=== PATIENT | female | born 1945 ===

== ENCOUNTER 2024-02-05 09:20 | Outpatient (AMB) | payer OTHER, SELFPAY ==
--- NOTE | 2024-02-05 09:16 | MHC.PC.OV ---
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 Manager Audio Required: Yes Manager Audio Language: Mexican - Traditional Is last menstrual period known: No Post menopausal: No Patient : No Allergies Penicillins Allergy (Mild, Verified 02/05/24 09:41) Itching Medication List - Last Reconciled 02/05/24 by Lucie Urbina, [facility]- amlodipine 2.5 mg PO DAILY irbesartan 75 mg PO DAILY osimertinib 80 mg PO Q24H Tobacco use date assessed: 02/05/24 Fall risk assessment: No Falls in past year Last assessed Fall Risk: 02/05/24 Dental Screening Dental Screen Date: 02/05/24 Did you have a dental visit in the last 12 months?: Yes Did you have a dental problem in the last 6 months where you did not have access to dental care?: No Was dental information given to patient?: Patient has dentist HPI HPI Comments History of Present Illness Details 78 y/o Mexican speaking female with osteoporosis, DJD, hyperlipidemia, hypertension, cancer of right lung (2018 managed by [facility]) s/p Radiation, BPPV status post hysterectomy, cataract surgery Health Maintenance: ? Colon ? Mammo 07/20/2022 BI-RADS 1- ? DEXA 07/24/2022 osteoporosis ? PAP ? Tdap Specialists: Oncologist q 3 months @ [facility] and [facility] Here today to est care & for a CPE, previous PCP records reviewed. Son present to help w language barrier HTN well controlled on current meds. Needs refills Has occasional GERD and uses PPI sparingly, needs refill. Cancer of right lung, dx in 2018, active on oral chemo. Son reports q 3 months labs and PET scans with stable findings Declines health maintenance imaging and labs; gets this done in [place]. Will be returning there in March. C/o insomnia daily, vertigo from time to time but this is self limiting and infrequent. c/o chronic low back pain, worse after doing dishes; has not tried any medications to help. swelling when traveling of ble that is self limiting and not assoc w/ any other Sx. General: Well developed, well nourished, in no acute distress. Appears stated age. Head: Normocephalic, atraumatic. Eyes: Pupils are equal, round and reactive to light and accommodation. Conjunctivae are clear. Vision grossly normal. Ears: TMs clear AU, EACS WNL Nose: Patent, without discharge. Mouth: There are no ulcers or lesions noted. No inflammation, no post nasal drip, no plaques nor exudates. Neck: Supple, no adenopathy or thyromegaly. Lungs: Clear to auscultation bilaterally. No rales, rhonchi or wheeze noted. Good air flow in all corea. Heart: Regular rate and rhythm. No murmurs, click, rubs or gallops are noted. Abdomen: Bowel sounds present in all quadrants. The abdomen is soft, nontender, with no masses or organomegaly noted. No hernias are noted. Musculoskeletal: Joints are nontender, without swelling, redness, or effusions. Range of motion is observed to be normal. Pulses: Peripheral pulses are equal and palpable bilaterally. Extremities: No clubbing, cyanosis nor edema is noted. Neurologic: Gait and station normal. Cranial Nerves 2-12 intact. Motor strength grossly symmetrical and intact. No sensory loss. Balance normal. Skin: No rashes, ulcers, or lesions noted. Turgor is good. Skin color is good. Hair and nails are without abnormalities. Psych: Normal eye contact, affect and mood appropriate, and normal interactions. Patient is alert and appropriate to context. Plan: Cont HTN meds; refill PPI to use PRN, lidocaine for low back pain. Cont care and fu with Onco Declined all health maintenance imaging and labs RTO 1 year for CPE, sooner as needed. [facility] Medical History (Updated 02/05/24 @ 11:40 [facility] Vaginal smear following removal of uterus and uterine cervix Surgical History (Updated 02/05/24 @ 10:37 by Leanna Stuart) S/P removal of cervix Family History (Updated 02/05/24 @ 09:30 by Leanna Stuart) Sister FH: mental illness Mother FH: mental illness Social History Housing: Apartment Patient Tobacco Use Status: Never used Tobacco e-Cigarette/Vaping Use: Never Used Second Hand Smoke Exposure: No service: No Current occupational status: retired Current occupational exposures/hazards: No Cognitive needs: No Hearing needs: No Vision needs: No Questionnaire PHQ-9 Over the last 2 weeks, how often have you been bothered by any of the following problems? 1. Little interest or pleasure in doing things: several days 2. Feeling down, depressed, or hopeless: not at all 3. Trouble falling or staying asleep, or sleeping too much: nearly every day 4. Feeling tired or having little energy: more than half the days 5. Poor appetite or overeating: not at all 6. Feeling bad about yourself - or that you are a failure or have let yourself or your family down: not at all 7. Trouble concentrating on things, such as reading the newspaper or watching television: several days 8. Moving or speaking so slowly that other people could have noticed. Or the opposite - being so fidgety or restless that you have been moving around a lot more than usual: several days 9. Thoughts that you would be better off or of hurting yourself in some way: not at all Total score: 8 Depression Screening Interpretation: Negative Depression Screening Done: Yes 15525 - PHQ-9 Billing: Yes Source: Developed by Drs. Joon Price, Maitlda Dykes, Burton Ambriz and colleagues, with an educational thang from [employer]. Thrive Questionnaire Date Thrive assessed: 02/05/24 I am a: Patient What is your living situation today?: I do not have a steady places to live Within the past 12 months, did the food you bought not last and you didn't have the money to get more?: Never true Within the past 12 months, did you worry whether your food would run out before you got money to buy more?: Never true Do you have trouble paying for medicines?: No Do you have trouble getting transportation to medical appointments?: No Do you have trouble paying your heating and electricity bill?: No Do you have trouble taking care of your child, family member or friend?: No Do you have trouble with day-to-day activities such as bathing, preparing meals, shopping, managing finances, etc.?: No Are you currently unemployed and looking for a job?: No Are you interested in more education?: No Please select the resources that you would like help with: None Currently or been in a relationship where the following occur: No concerns reported THRIVE Score: 1 AUDIT C Alcohol Use Questionnaire (AUDIT-C) 1. How often do you have a drink containing alcohol?: 4 or more times a week 2. How many drinks containing alcohol do you have on a typical day when you are drinking?: 1 or 2 3. How often do you have six or more drinks on one occasion?: Never Total Score: 4 Score Reviewed/Action Taken: Yes AYAD-7 AMB Questionnaire AYAD-7 Date AYAD - 7 assessed: 02/05/24 Feeling nervous, anxious, or on edge: 1 = Several days Not being able to stop or control worryin = Several days Worrying too much about different things: 1 = Several days Trouble relaxin = Several days Being so restless that it is hard to sit still: 0 = Not at all Becoming easily annoyed or irritable: 0 = Not at all Feeling afraid as if something awful might happen: 0 = Not at all Total AYAD-7 score (0-4 normal; 5-9 mild; 10-14 moderate; 15-21 severe): 4 Source: Developed by Drs. Joon Price, Matilda Dykes, Burton Ambriz and colleagues, with an educational thang from [employer]. AYAD-7 Assessment Billing AYAD-7 Assessment Tool: AYAD-7 Assessment 85545 Physical exam (Primary Care) Vital Signs: Last Vital Signs Temp 97.3 F 02/05/24 09:20 Pulse 48 L 02/05/24 09:20 Resp 16 02/05/24 09:20 BP 124/80 02/05/24 09:20 Pulse Ox 98 02/05/24 09:20 Oxygen Delivery Method Room Air 02/05/24 09:20 BMI result Body Mass Index 22.9 Tobacco/Smoking Status: Tobacco use Status Tobacco use date assessed 02/05/24 02/05/24 09:31 Patient Tobacco Use Status Never used Tobacco 02/05/24 09:31 e-Cigarette/Vaping Use Never Used 02/05/24 09:31 PHQ-9: PHQ-9 Score PHQ-9: Total score 8 02/05/24 10:29 Depression Screening Interpretation: Negative Thrive Assessment: Date of Thrive Assessment Date Thrive assessed 02/05/24 02/05/24 09:51 Currently or been in a relationship where the following occur: No concerns reported Assessment and Plan Assessment & Plan (1) Encounter for general adult medical examination without abnormal findings: Code(s): Z00.00 - Encounter for general adult medical examination without abnormal findings (2) Osteoporosis: Code(s): M81.0 - Age-related osteoporosis without current pathological fracture Qualifiers: Osteoporosis type: age-related Presence of current pathological fracture: without current pathological fracture Qualified Code(s): M81.0 - Age-related osteoporosis without current pathological fracture (3) Degenerative joint disease (DJD) of lumbar spine: Code(s): M47.816 - Spondylosis without myelopathy or radiculopathy, lumbar region Qualifiers: Spinal osteoarthritis complication: without myelopathy or radiculopathy Qualified Code(s): M47.816 - Spondylosis without myelopathy or radiculopathy, lumbar region (4) HTN (hypertension): Code(s): I10 - Essential (primary) hypertension Qualifiers: Hypertension type: primary hypertension Qualified Code(s): I10 - Essential (primary) hypertension (5) Hyperlipidemia: Code(s): E78.5 - Hyperlipidemia, unspecified Qualifiers: Hyperlipidemia type: mixed hyperlipidemia Qualified Code(s): E78.2 - Mixed hyperlipidemia (6) Cancer of right lung: Code(s): C34.91 - Malignant neoplasm of unspecified part of right bronchus or lung Qualifiers: Lung location: unspecified part of lung Qualified Code(s): C34.91 - Malignant neoplasm of unspecified part of right bronchus or lung (7) BPPV (benign paroxysmal positional vertigo): Code(s): H81.10 - Benign paroxysmal vertigo, unspecified ear Qualifiers: Laterality: bilateral Qualified Code(s): H81.13 - Benign paroxysmal vertigo, bilateral (8) GERD without esophagitis: Code(s): K21.9 - Gastro-esophageal reflux disease without esophagitis Medications: New amlodipine 2.5 mg PO DAILY 90 tabs 2RF irbesartan 75 mg PO DAILY 90 tabs 2RF lidocaine 5% leave on most painful area for up to 12 hrs 1 patch topical DAILY 30 ea 7RF omeprazole 20 mg PO DAILY PRN 30 caps 2RF acid reflux Patient Instructions: Health screenings for women You should visit your health care provider from time to time, even if you are healthy. The purpose of these visits is to: Screen for medical issues Assess your risk for future medical problems Encourage a healthy lifestyle Update vaccinations and other preventive care services Help you get to know your provider in case of an illness Information Even if you feel fine, you should still see your provider for regular checkups. These visits can help you avoid problems in the future. For example, the only way to find out if you have high blood pressure is to have it checked regularly. High blood sugar and high cholesterol levels also may not have any symptoms in the early stages. A simple blood test can check for these conditions. There are specific times when you should see your provider or receive specific health screenings. The [place] Preventive Services Task Force publishes a list of recommended screenings. Below are screening guidelines for women ages 18 to 39. BLOOD PRESSURE SCREENING Your blood pressure should be checked at least once every 3 to 5 years if: Your blood pressure is in the normal range (top number less than 120 mm Hg and bottom number less than 80 mm Hg) You don't have risk factors for high blood pressure Ask your provider if you need your blood pressure checked more often if: The top number is 120 to 129 mm Hg or the bottom number is 70 to 79 mm Hg You have diabetes, heart disease, kidney problems, are overweight, or have certain other health conditions You have a first-degree relative with high blood pressure You are Black You had high blood pressure during a If the top number is 130 mm Hg or greater or the bottom number is 80 mm Hg or greater, this is considered stage 1 hypertension. Schedule an appointment with your provider to learn how you can reduce your blood pressure. Watch for blood pressure screenings in your area. Ask your provider if you can stop in to have your blood pressure checked. BREAST CANCER SCREENING Experts do not agree about the benefits of breast self-exams in finding breast cancer or saving lives. Talk to your provider about what is best for you. A screening mammogram is not recommended for most women under age 40. Your provider may discuss and recommend mammograms, MRI scans, or ultrasounds if you have an increased risk for breast cancer, such as: A mother or sister who had breast cancer at a young age (most often starting screening earlier than the age the close relative was diagnosed) You carry a high-risk genetic marker CERVICAL CANCER SCREENING Cervical cancer screening should start at age 21 years unless your provider advises otherwise. After the first test: Women ages 21 through 29 should have a Pap test every 3 years. Exoprts do not agree on whether HPV testing is recommended for this age group. Women ages 30 through 65 should be screened with either a Pap test every 3 years or the HPV test every 5 years or both tests every 5 years (called cotesting ). Women who have been treated for precancer (cervical dysplasia) should continue to have Pap tests for 20 years after treatment or until age 65, whichever is longer. If you have had your uterus and cervix removed (total hysterectomy), and you have not been diagnosed with cervical cancer or precancer (high grade cervical neoplasia), you do not need cervical cancer screening. CHOLESTEROL SCREENING Cholesterol screening should begin at: Age 45 for women with no known risk factors for coronary heart disease Age 20 for women with known risk factors for coronary heart disease Repeat cholesterol screening should take place: Every 5 years for women with normal cholesterol levels More often if changes occur in lifestyle (including weight gain and diet) More often if you have diabetes, heart disease, kidney problems, or certain other conditions DIABETES SCREENING You should be screened for diabetes starting at age 35 and then repeated every 3 years if you have no risk factors for diabetes. Screening may need to start earlier and be repeated more often if you have other risk factors for diabetes, such as: You have a first degree relative with diabetes. You are overweight or have obesity. You have high blood pressure, prediabetes, or a history of heart disease. Screening for diabetes should be done if you are planning to become and you are overweight and have other risk factors such as high blood pressure. DENTAL EXAM Go to the dentist once or twice every year for an exam and cleaning. Your dentist will evaluate if you need more frequent visits. EYE EXAM Have an eye exam every 5 to 10 years before age 40. If you have vision problems, have an eye exam every 2 years or more often if recommended by your provider. You should have an eye exam that includes an examination of your retina (back of your eye) at least every year if you have diabetes. IMMUNIZATIONS Commonly needed vaccines include: Flu shot: get one every year. COVID-19 vaccine: ask your provider what is best for you. Tetanus-diphtheria and acellular pertussis (Tdap) vaccine: have one at or after age 19 as one of your tetanus-diphtheria vaccines if you did not receive it as an adolescent. Tetanus-diphtheria: have a booster (or Tdap) every 10 years. Varicella vaccine: receive 2 doses if you never had chickenpox or the varicella vaccine. Hepatitis B vaccine: receive 2, 3, or 4 doses, depending on your exact circumstances. Measles, mumps, and rubella (MMR) vaccine: receive 1 to 2 doses if you are not already immune to MMR. Your provider can tell you if you are immune. Ask your provider about the human papillomavirus (HPV) vaccine if: You have not received the HPV vaccine in the past You have not completed the full vaccine series (you should catch up on this shot) Ask your provider if you should receive other immunizations if you have certain health problems that increase your risk for some diseases such as pneumonia. INFECTIOUS DISEASE SCREENING Women who are sexually active should be screened for chlamydia and gonorrhea up until age 25. Women 25 years and older should be screened for chlamydia and gonorrhea if at high risk. Screening for hepatitis C: All adults ages 18 to 79 should get a one-time test for hepatitis C. people should be screened at every . Screening for human immunodeficiency virus (HIV): All people ages 15 to 65 should get a one-time test for HIV. Depending on your lifestyle and medical history, you may also need to be screened for infections such as syphilis and HIV, as well as other infections. PHYSICAL EXAM All adults should visit their provider from time to time, even if they are healthy. The purpose of these visits is to: Screen for disease Assess your risk of future medical problems Encourage a healthy lifestyle Update your vaccinations and other preventive care services Maintain a relationship with a provider in case of an illness Your height, weight, and BMI should be checked at every exam. During your exam, your provider may ask you about: Depression and anxiety Diet and exercise Alcohol and tobacco use Safety issues, such as using seat belts, smoke detectors, and intimate partner violence Your medicines and risk for interactions SKIN SELF-EXAM Your provider may check your skin for signs of skin cancer, especially if you're at high risk, such as if you: Have had skin cancer before Have close relatives with skin cancer Have a weakened immune system OTHER SCREENING Talk with your provider about colon cancer screening if you have a strong family history of colon cancer or polyps, or if you have had inflammatory bowel disease or polyps yourself. Routine bone density screening of women under 40 is not recommended. Review Patient declined Mammogram: 02/05/24 Declined Pap Smear: 02/05/24 Patient declined Colonoscopy: 02/05/24 Patient declined Colon Cancer Screen Lab: 02/05/24 Patient declined Pneumococcal Vaccine: 02/05/24 Flu Vaccine not done: patient reason Declined TDap/Td: 02/05/24 Coding Level of Care Code New Pt Prev Care >65yr (67826) Diagnoses Encounter for general adult medical examination without abnormal findings Z00.00 Age-related osteoporosis without current pathological fracture M81.0 Osteoporosis type: age-related Presence of current pathological fracture: without current pathological fracture Spondylosis of lumbar region without myelopathy or radiculopathy M47.816 Spinal osteoarthritis complication: without myelopathy or radiculopathy Primary hypertension I10 Hypertension type: primary hypertension Mixed hyperlipidemia E78.2 Hyperlipidemia type: mixed hyperlipidemia Malignant neoplasm of right lung, unspecified part of lung C34.91 Lung location: unspecified part of lung Benign paroxysmal positional vertigo due to bilateral vestibular disorder H81.13 Laterality: bilateral GERD without esophagitis K21.9 Additional Codes AYAD-7 Assessment Billing - AYAD-7 Assessment Tool: AYAD-7 Assessment 23953 ([id number])
[2024-02-05 09:20] VITALS: BP 124/80; PULSE 48; RESP 16; TEMP 36.3; O2SAT 98; BMI 22.9
== END 2024-02-05 09:58 | disposition home or self-care (01) ==
PROVIDERS: PCP Nurse Practitioner Family; Visit Provider Nurse Practitioner Family
DX: Z00.00 Encounter for general adult medical examination without abnormal findings (principal); C34.91 Malignant neoplasm of unspecified part of right bronchus or lung; M81.0 Age-related osteoporosis without current pathological fracture; M47.816 Spondylosis without myelopathy or radiculopathy, lumbar region; I10 Essential (primary) hypertension; E78.2 Mixed hyperlipidemia; H81.13 Benign paroxysmal vertigo, bilateral; K21.9 Gastro-esophageal reflux disease without esophagitis
CPT/HCPCS: 99387